=== PATIENT | male | born 1950 | race Caucasian/White ===

== ENCOUNTER → 2018-04-04 | Outpatient (CLI) | payer BC | LOC: BFHH 12:30 | PROVIDERS: ATTEND Internal Medicine Infectious Disease | DX: T82.7XXD Infection and inflammatory reaction due to other cardiac and vascular devices, implants and grafts, subsequent encounter (principal); I71.2 Thoracic aortic aneurysm, without rupture ==

== ENCOUNTER → 2018-04-11 | Outpatient (CLI) | payer MEDICARE | LOC: BFHH 11:18 | PROVIDERS: ATTEND Internal Medicine Infectious Disease | DX: T82.7XXD Infection and inflammatory reaction due to other cardiac and vascular devices, implants and grafts, subsequent encounter (principal); I71.2 Thoracic aortic aneurysm, without rupture ==

== ENCOUNTER → 2018-04-18 | Outpatient (CLI) | payer MEDICARE | LOC: BFHH 14:23 | PROVIDERS: ATTEND Internal Medicine Infectious Disease | DX: I71.2 Thoracic aortic aneurysm, without rupture (principal); T82.7XXD Infection and inflammatory reaction due to other cardiac and vascular devices, implants and grafts, subsequent encounter ==

== ENCOUNTER → 2018-04-25 | Outpatient (CLI) | payer MEDICARE | LOC: BFHH 13:08 | PROVIDERS: ATTEND Internal Medicine Infectious Disease | DX: I71.2 Thoracic aortic aneurysm, without rupture (principal); T82.7XXD Infection and inflammatory reaction due to other cardiac and vascular devices, implants and grafts, subsequent encounter ==

== ENCOUNTER → 2018-05-02 | Outpatient (CLI) | payer MEDICARE | LOC: BFHH 15:05 | PROVIDERS: ATTEND Internal Medicine Infectious Disease | DX: I71.2 Thoracic aortic aneurysm, without rupture (principal); T82.7XXD Infection and inflammatory reaction due to other cardiac and vascular devices, implants and grafts, subsequent encounter ==

== ENCOUNTER 2018-06-21 18:52 | Emergency (ER) | payer MEDICARE, OTHER ==
--- NOTE | 2018-06-21 19:11 | ED.PDOC ---
History of Present Illness - General Chief Complaint: GI Problem Time Seen by Provider: 06/21/18 19:05 Source: patient, Vital Signs reviewed, EMS notes reviewed Additional Information: 68 YEAR OLD BROUGHT FROM HOME AFTER HE HAD A SYNCOPAL EPISODE HE WAS FOUND OUTSIDE THE HOUSE BROUGHT INTO THE HOUSE BY THE FAMILY HE IS NOT SURE WHAT HAPPENED HE HAS HISTORY OF ESOPHAGEAL CARCINOMA AND HE IS SP REPAIR OF ABDOMINAL AORTIC ANEURYSM HE HAD WHAT SOUNDS LIKE AN ENDOVASCULAR STENT NOV 2017 THAT GOT INFECTED SO HE A GRAFT DONE IN FEBRUARY 2018 AT THE TIME OF THE SECOND SURGERY THEY FOUND A ESOPHAGEAL CARCINOMA THEY ARE PLANING TO OPERATE IN JUNE SINCE THE LAST SURGERY HE HAS BEEN EXPERIENCING BOWEL INCONTINENCE TODAY HE HAS HAD LOOSE STOOLS HE HAS HISTORY OF CHRONIC ALCOHOL ABUSE TODAY HE ADMITS TO HAVING A COUPLE OF BEERS HIS ALCOHOL LEVEL IS 184 - History of Present Illness Timing/Duration: 4-6 hours Severity: moderate Improving Factors: nothing Worsening Factors: nothing Associated Symptoms: denies symptoms Allergies/Adverse Reactions: Allergies Penicillins Allergy (Verified 06/21/18 20:13) Review of Systems - Review of Systems Constitutional: States: weakness EENTM: States: no symptoms reported Respiratory: States: no symptoms reported Cardiology: States: no symptoms reported Gastrointestinal/Abdominal: States: abdominal pain, diarrhea Genitourinary: States: no symptoms reported Musculoskeletal: States: no symptoms reported Skin: States: no symptoms reported Neurological: States: no symptoms reported Endocrine: States: no symptoms reported Hematologic/Lymphatic: States: no symptoms reported Family Medical History - Family History Mother Hx Family Hypertension: Yes Hx Cardiac Disease: Yes Physical Exam - Physical Exam General Appearance: Alert, Ill Appearing Eye Exam: bilateral normal Ears, Nose, Throat: hearing grossly normal, normal ENT inspection, normal pharynx, other - DRY ORAL MUCOSA Neck: non-tender, full range of motion, supple Respiratory: chest non-tender, lungs clear, normal breath sounds, no respiratory distress, no accessory muscle use, respiratory distress Cardiovascular/Chest: normal peripheral pulses, regular rate, rhythm, no edema, no gallop, no JVD Gastrointestinal/Abdominal: normal bowel sounds, non tender, soft, no organomegaly, no pulsatile mass - A LEFT LATERAL THOROCO ABDOMINAL SCAR NOTED Back Exam: normal inspection, no CVA tenderness Extremity: normal range of motion, non-tender, normal inspection, no pedal edema 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, no motor/sensory deficits, alert, depressed affect Skin Exam: normal color, warm/dry Lymphatic: no adenopathy Progress - Results/Orders Results/Orders: Laboratory Tests 06/21/18 06/21/18 06/21/18 19:22 19:22 19:45 WBC 12.1 H RBC 4.72 Hgb 12.1 L Hct 36.4 L MCV 77.2 L MCH 25.6 L MCHC 33.2 RDW 17.3 H Plt Count 631 H MPV 6.3 L Absolute Neuts (auto) 8.50 H Absolute Lymphs (auto) 1.90 Absolute Monos (auto) 1.00 H Absolute Eos (auto) 0.60 H Absolute Basos (auto) 0.10 Neutrophils % 70.0 Lymphocytes % 15.5 L Monocytes % 8.7 Eosinophils % 4.8 Basophils % 1.0 PT 9.9 INR 0.99 PTT (SP) 26.7 Sodium 129 L Potassium 3.5 L Chloride 97 L Carbon Dioxide 22 Anion Gap 13.5 BUN 12 Creatinine 0.70 BUN/Creatinine Ratio 17.1 Random Glucose 147 H Serum Osmolality 261.4 L Calcium 8.2 L Total Bilirubin 0.2 AST 14 ALT 13 Alkaline Phosphatase 78 Serum Total Protein 6.1 L Albumin 3.3 Globulin 2.8 Albumin/Globulin Ratio 1.2 Lipase Urine Color Urine Appearance Urine pH Ur Specific [place] Urine Protein Urine Glucose (UA) Urine Ketones Urine Blood Urine Nitrite Urine Bilirubin Urine Urobilinogen Ur Leukocyte Esterase Urine RBC Urine WBC Ur Epithelial Cells Amorphous Sediment Urine Bacteria Urine Mucus Ethyl Alcohol 06/21/18 06/21/18 06/21/18 20:16 20:16 21:03 WBC RBC Hgb Hct MCV MCH MCHC RDW Plt Count MPV Absolute Neuts (auto) Absolute Lymphs (auto) Absolute Monos (auto) Absolute Eos (auto) Absolute Basos (auto) Neutrophils % Lymphocytes % Monocytes % Eosinophils % Basophils % PT INR PTT (SP) Sodium Potassium Chloride Carbon Dioxide Anion Gap BUN Creatinine BUN/Creatinine Ratio Random Glucose Serum Osmolality Calcium Total Bilirubin AST ALT Alkaline Phosphatase Serum Total Protein Albumin Globulin Albumin/Globulin Ratio Lipase 31 Urine Color Yellow Urine Appearance Clear Urine pH 6.5 Ur Specific [place] 1.010 Urine Protein Negative Urine Glucose (UA) Negative Urine Ketones Negative Urine Blood Negative Urine Nitrite Negative Urine Bilirubin Negative Urine Urobilinogen 0.2 Ur Leukocyte Esterase Negative Urine RBC 0-1 Urine WBC 0-1 Ur Epithelial Cells 0 Amorphous Sediment Trace Urine Bacteria 0 Urine Mucus Trace Ethyl Alcohol 184.40 H* 10 00 PM PATIENT FEELS BETTER HE IS AWAKE ALERT NO FURTHER SYMPTOMS HIS PCP DR CRAFT WAS NOTIFIED OF THE FINDINGS HE WILL BE FOLLOWED UP BY HIM TOMORROW IN HIS OFFICE Departure - Departure Clinical Impression: Carcinoma of cardio-esophageal junction, Hyponatremia, Alcoholic intoxication, chronic Time of Disposition: 21:50 Disposition: Discharge to Home or Self Care Condition: Good Departure Forms: ED Discharge - Pt. Copy, Patient Portal Self Enrollment Diet: resume usual diet Referrals: Karthik Craft MD [Primary Care Provider] - 1-2 Weeks
[2018-06-21 20:30] VITALS: O2SAT 97
[2018-06-21] MEDS ORDERED: SODIUM CHLORIDE 0.9% 1000ML 1,000 ML IVS ONE ×2 (20:39→21:51)
[2018-06-21 23:17] VITALS: BP 154/94; TEMP 98.1
== END 2018-06-21 22:40 | disposition home or self-care (01) ==
LOC: ER 18:52
DX: C16.0 Malignant neoplasm of cardia (principal); F10.129 Alcohol abuse with intoxication, unspecified; E87.1 Hypo-osmolality and hyponatremia; Y90.6 Blood alcohol level of 120-199 mg/100 ml; Z88.0 Allergy status to penicillin
CPT/HCPCS: 36415; 80053; 80320; 81001; 83690; 85025; 85610; 85730; 87045; 87046; J7030

== ENCOUNTER → 2018-07-24 | Outpatient (CLI) | payer MEDICARE, OTHER | LOC: BFHH 18:33 | PROVIDERS: ATTEND General Practice | DX: R33.9 Retention of urine, unspecified (principal) ==

== ENCOUNTER 2018-08-28 23:24 | Emergency (ER) | payer MEDICARE, OTHER ==
[2018-08-28 23:39] VITALS: BP 162/98; TEMP 98; O2SAT 99
--- NOTE | 2018-08-29 00:02 | ED.PDOC ---
History of Present Illness - General Chief Complaint: Problem Stated Complaint: sent for helton insertion Time Seen by Provider: 08/28/18 23:47 Source: patient Exam Limitations: no limitations - History of Present Illness Initial Comments: the patient is a 68-year-old male with prostate issues presenting secondary to urinary retention for the last 12-24 hours. He is a patient of Dr. Dunne. He has follow-up with his primary care doctor tomorrow. No fever. No significant bleeding. He is presenting for catheter placement as he was instructed to by his urologist if he has urinary retention. Timing/Duration: 24 hours Severity: moderate Improving Factors: nothing Worsening Factors: nothing Allergies/Adverse Reactions: Allergies Lorazepam [From Ativan] Allergy (Verified 08/28/18 23:39) Penicillins Allergy (Verified 06/21/18 20:13) Review of Systems - Review of Systems Constitutional: States: no symptoms reported EENTM: States: no symptoms reported Respiratory: States: no symptoms reported Cardiology: States: no symptoms reported Gastrointestinal/Abdominal: States: abdominal pain Genitourinary: States: pain Musculoskeletal: States: no symptoms reported Skin: States: no symptoms reported Neurological: States: no symptoms reported Endocrine: States: no symptoms reported All other Systems: No Change from Baseline Past Medical History (General) - Patient Medical History Hx Asthma: Yes Hx Cardiac Disorders: Yes - aneurysm Hx Hypertension: Yes Hx Thyroid Disease: Yes Hx Diabetes: Yes Hx Cancer: Yes - Vaccination History Hx Tetanus, Diphtheria Vaccination: Yes Hx Pneumococcal Vaccination: No Immunizations Up to Date: Yes - Social History Hx Tobacco Use: No Hx Alcohol Use: Yes - still - Triage Comment ED Triage Comment: Sent from urologist with written order to place helton if unable to empty bladder, had catheter removed in office this afternoon Family Medical History - Family History Mother Hx Family Hypertension: Yes Hx Cardiac Disease: Yes Physical Exam - Physical Exam General Appearance: Alert, Comfortable, No apparent distress Eye Exam: bilateral normal Ears, Nose, Throat: hearing grossly normal Neck: non-tender Respiratory: no respiratory distress, no accessory muscle use Cardiovascular/Chest: no edema Gastrointestinal/Abdominal: non tender, soft Rectal Exam: deferred Extremity: no pedal edema, normal capillary refill 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 Helton catheter was placed as per wishes of urology. The patient is to keep follow-up with urology and his primary care doctor in the coming days. ER warnings were given. Departure - Departure Clinical Impression: Retention of urine Disposition: Discharge to Home or Self Care Condition: Fair Departure Forms: ED Discharge - Pt. Copy, Patient Portal Self Enrollment Instructions: DI for Urinary Retention in Men Diet: regular diet Activity: increase activity as tolerated Referrals: Karthik Craft MD [Primary Care Provider] - 1-5 Days Additional Instructions: the patient is 68-year-old male presenting secondary to urinary retention. Helton catheter was placed as per wishes of urology. The patient is to keep follow-up with urology and his primary care doctor in the coming days. ER warnings were given.
== END 2018-08-29 00:09 | disposition home or self-care (01) ==
LOC: ER 23:24
DX: R33.9 Retention of urine, unspecified (principal); I10 Essential (primary) hypertension; E07.9 Disorder of thyroid, unspecified; E11.9 Type 2 diabetes mellitus without complications; Z85.9 Personal history of malignant neoplasm, unspecified; Z88.8 Allergy status to other drugs, medicaments and biological substances; Z88.0 Allergy status to penicillin